=== PATIENT | female | born 1995 | race Caucasian/White ===

== ENCOUNTER 2016-12-28 20:56 | Emergency (ER) | payer SELFPAY ==
[~2016-12-28] VITALS: Ht 160 cm; Wt 58.6 kg
[2016-12-28] MEDS ORDERED: SODIUM CHLORIDE 0.9% 1,000 ML IV ONE (21:37)
[2016-12-28] MEDS ORDERED: FAMOTIDINE 20MG/2ML VIAL IV STA (21:37)
[2016-12-28] MEDS ORDERED: ONDANSETRON HCL 4MG/2ML VIAL IV STA (21:37)
[2016-12-28] MEDS ORDERED: MAGNESIUM/ALUMINUM HYDROXIDE/SIMETHICONE 30ML UDC PO STA (21:37)
[2016-12-28 21:47] LABS: CLARITY URINE CLEAR (CLEAR); COLOR URINE YELLOW (YELLOW); GLUCOSE URINE NEGATIVE (NEGATIVE); KETONES URINE TRACE (NEGATIVE); LEUKOCYTE ESTERASE URINE NEGATIVE (NEGATIVE); NITRITE URINE NEGATIVE (NEGATIVE); OCCULT BLOOD URINE NEGATIVE (NEGATIVE); PH URINE 5.5 (4.5-8.0); PROTEIN URINE NEGATIVE (NEGATIVE)
[2016-12-28 21:55] LABS: BASOPHILS % 0.6 % (0.0-2.0); HEMATOCRIT. 38.9 % (36.0-48.0); HEMOGLOBIN. 13.3 g/dL (12.0-16.0); LYMPHOCYTES % 17.8 % (20.0-50.0); MEAN CORPUSCULAR HEMOGLOBIN 30.9 pg (28.0-32.0); MEAN CORPUSCULAR VOLUME 90.5 fL (81.0-99.0); MEAN PLATELET VOLUME 7.4 fl (7.4-10.4); MONOCYTES % 7.7 % (2.0-8.0); NEUTROPHILS % 72.9 % (40.0-76.0); PLATELET 242 x1000/uL (130-400); RED CELL DISTRIBUTION WIDTH 13.7 % (11.6-14.6)
[2016-12-28 22:05] LABS: D-DIMER 0.69 mg/L FEU (<0.50); PROTHROMBIN TIME 10.7 sec (9.4-11.6)
[2016-12-28 22:06] LABS: HCG SCREEN NEGATIVE
[2016-12-28 22:10] LABS: CARBON DIOXIDE 22 mEq/L (21-32); CHLORIDE 110 mEq/L (98-107); TROPONIN I 0.02 ng/mL (0.00-0.04)
[2016-12-28] MEDS ORDERED: KETOROLAC 30MG/ML VIAL IV ONE (23:15)
[2016-12-29 00:26] VITALS: BP 97/55
== END 2016-12-29 00:32 | disposition home or self-care (01) ==
LOC: ER 21:44
DX: K29.70 Gastritis, unspecified, without bleeding (principal); E86.0 Dehydration; R00.0 Tachycardia, unspecified; J45.909 Unspecified asthma, uncomplicated
CPT/HCPCS: 36415; 71010; 76705; 80053; 81003; 83690; 84484; 84703; 85025; 85379; 85610; 93005; 96361; 96374; 96375; 99285; J1885; J2405; J3490; J7030; Z7610